=== PATIENT | female | born 1960 | race Caucasian/White ===

== ENCOUNTER 2020-01-15 12:02 | Outpatient (CLI) | payer OTHER, SELFPAY ==
[2020-01-16 14:21] LABS: SARS-CoV-2 RNA PCR Negative
== END 2020-01-15 12:03 | disposition home or self-care (01) ==
LOC: CHSLAB 12:07
PROVIDERS: PCP Internal Medicine; Visit Provider Internal Medicine
DX: Z20.828 Contact with and (suspected) exposure to other viral communicable diseases (principal)
CPT/HCPCS: 87635; C9803; U0003

== ENCOUNTER 2020-02-09 09:41 | Emergency (ER) | payer OTHER, SELFPAY ==
[2020-02-09 09:59] VITALS: BP 159/89; PULSE 82; RESP 18; TEMP 36.9; O2SAT 97
[2020-02-09] MEDS: KETOROLAC (*BKC) 60 MG/2 ML VIAL IM (10:51)
[2020-02-09] MEDS: BACLOFEN 10 MG TABLET 20 MG PO (10:58)
[2020-02-09] MEDS: DEXAMETHASONE 2 MG TABLET 10 MG PO (10:59)
[2020-02-09] MEDS: DIVALPROEX SODIUM 250 MG TAB.ER.24H 500 MG PO (10:59)
[2020-02-09] MEDS: PROCHLORPERAZINE MALEATE 5 MG TABLET 10 MG PO (10:59)
--- NOTE | 2020-02-09 12:15 | ED.HA ---
HPI - Headache General Chief Complaint: Headache Stated Complaint: Sever Headache Time Seen by Provider: 02/09/20 10:10 Source: patient Mode of arrival: ambulatory Limitations: no limitations History of Present Illness MD elicited complaint: headache and migraine Pertinent past history: migraines, hypertension and other (HL, ) Onset (ago): day(s) (She has has a migraine for the last several days. This has waxed and waned in severity over the past few day. ) Location: other (Headache now is not localized. It started behind the right eye as most of her headaches do. ) Severity: severe (Moderately severe to severe. She would say this is one of the worst she has had in some time. ) Pain scale (0-10): 8 Quality & Timing: throbbing Exacerbating factors: exertion and other (movement) Relieving factors: rest and dark room Associated symptoms: nausea Treatments prior to arrival: ibuprofen Related Data Home Medications Medication Instructions Recorded Confirmed rosuvastatin 60 mg PO HS 02/09/20 02/09/20 venlafaxine 150 mg PO DAILY 02/09/20 02/09/20 verapamil 120 mg PO HS 02/09/20 02/09/20 Allergies Allergy/AdvReac Type Severity Reaction Status Date / Time No Known Allergies Allergy Verified 02/09/20 09:58 Review of Systems Review of Systems: Narrative: Headache that has gone on for days and has gotten better, but not gone away a few times since it started. Constitutional: Constitutional: Reports no additional constitutional complaints Eyes: Eyes: Reports no additional eye complaints ENT: Reports system reviewed and no additional complaints, except as documented Gastrointestinal: Comments: Nausea Neurologic: Comments: no focal weakness PMFSH Past Medical History Medical History Anxiety Hyperlipidemia Migraine Exam Narrative: Exam Narrative: This is a 59 year old woman who has migraine since a teen. With age her headaches have become less severe. This episode is much worse than her usual and resembles headaches she had when she was Course Course Emergency Course: She was given ketorolac 60mg IM, baclofen 20mg po, compazine 10mg po, Depakote 500mg, and dexamethasone 10mg po. After a few minutes she was feeling better. She feels she can go home and sleep now. Vital Signs Vital signs: Vital Signs Temperature 36.9 C 02/09/20 09:59 Pulse Rate 82 02/09/20 09:59 Respiratory Rate 18 02/09/20 09:59 Blood Pressure 159/89 H 02/09/20 09:59 Pulse Oximetry 97 02/09/20 09:59 Temperature 36.9 C 02/09/20 09:59 Pulse Rate 75 02/09/20 12:16 Respiratory Rate 16 02/09/20 12:16 Blood Pressure 133/78 02/09/20 12:16 Pulse Oximetry 99 02/09/20 12:16 Discharge Plan Discharge Clinical Impression: Migraine Qualifiers: Status migrainosus presence: with status migrainosus Patient Disposition: Home, Self-Care Condition: Improved Instructions: Antibiotic Form, Migraine Headache (ED) Prescriptions: No Action venlafaxine 150 mg Capsule,Extended Release 24hr 150 mg PO DAILY RF: 0 verapamil 120 mg Tablet 120 mg PO HS RF: 0 rosuvastatin 40 mg Tablet 60 mg PO HS RF: 0 Follow-up/Referrals: Arvin Magana MD [Primary Care Provider] - Time of Disposition: 12:42
[2020-02-09 12:16] VITALS: BP 133/78; PULSE 75; RESP 16; O2SAT 99
== END 2020-02-09 12:50 | disposition home or self-care (01) ==
PROVIDERS: Emergency Provider Emergency Medicine; PCP Internal Medicine
DX: G43.901 Migraine, unspecified, not intractable, with status migrainosus (principal)
CPT/HCPCS: 96372; 99281; 99283; A9270; J1885; J8540

== ENCOUNTER 2020-04-19 05:45 | Emergency (ER) | payer OTHER, SELFPAY ==
[2020-04-19 05:59] VITALS: BP 150/83; PULSE 62; RESP 18; TEMP 36.3; O2SAT 100
[2020-04-19] MEDS: ONDANSETRON INJ 4 MG/2 ML VIAL IV PUSH (06:12)
[2020-04-19] MEDS: KETOROLAC 30 MG/ML VIAL (*BKC) IV PUSH (06:14)
[2020-04-19] MEDS: diphenhydrAMINE HCl INJ 50 MG/ML VIAL IV PUSH (06:15)
--- NOTE | 2020-04-19 06:27 | ED.HA ---
HPI - Headache General Chief Complaint: Headache Stated Complaint: Migraine Headache Source: patient and RN notes reviewed Mode of arrival: ambulatory Limitations: no limitations History of Present Illness MD elicited complaint: migraine Pertinent past history: migraines Onset (ago): day(s) (1) Onset description: gradually and while at rest Location: frontal Severity: similar to previous episodes Quality & Timing: throbbing and progressively worsening Exacerbating factors: light and noise Relieving factors: nothing Context: occurred at rest Associated symptoms: nausea and vomiting Treatments prior to arrival: none Related Data Home Medications Medication Instructions Recorded Confirmed rosuvastatin 60 mg PO HS 02/09/20 04/19/20 venlafaxine 150 mg PO DAILY 02/09/20 04/19/20 verapamil 120 mg PO HS 02/09/20 04/19/20 Allergies Allergy/AdvReac Type Severity Reaction Status Date / Time No Known Allergies Allergy Verified 02/09/20 09:58 Review of Systems Review of Systems: All systems reviewed & are unremarkable except as noted in HPI and below Constitutional: Constitutional: Denies chills and Denies fever(s) Eyes: Eyes: Reports photophobia Neurologic: Reports system reviewed and no additional complaints, except as documented PMFSH Past Medical History Medical History Anxiety Hyperlipidemia Migraine Exam Const: General: no acute distress and ill appearing (Appears in pain headache) acutely Nutritional Appearance: well nourished and thin Orientation/consciousness: patient oriented x3 HENMT: Head: normal to inspection Ears: external ears normal and TM's normal bilaterally General nose exam: Normal external nose present Face and sinus: normal facial exam Eyes: Conjunctivae: conjunctivae normal Pupils: Equal, round and reactive pupils present EOM: EOMs intact bilaterally Direct Ophthalmoscopy: photophobia Neck: Neck: normal visual inspection, no lymphadenopathy and no meningeal signs Resp: Effort & Inspection: normal respiratory effort Auscultation: clear to auscultation bilaterally Cardio: Rate: regular rate Rhythm: regular rhythm GI: GI Palp: Yes Soft to palpation and No Tenderness to palpation present (GI) Auscultation: normal bowel sounds Back/Spine/Pelvis: Cervical Spine: cervical ROM normal Thoracic/Lumbar Spine: thoraco-lumbar ROM normal Skin: General skin exam: normal color Rashes: no rashes Neuro: General: patient oriented x3, moves all extremities and no focal motor deficits Cranial nerves: Yes Nystagmus not present Speech: normal speech Gait exam (Neuro): Normal gait present Extrem: General: normal to inspection and no clubbing, cyanosis or edema Psych: Appearance: grossly normal and well kempt Mental Status: mental status grossly normal Affect: normal affect Attitude: cooperative Thought content: Yes Normal thought content present Course Vital Signs Vital signs: Vital Signs Temperature 36.3 C L 04/19/20 05:59 Pulse Rate 62 04/19/20 05:59 Respiratory Rate 18 04/19/20 05:59 Blood Pressure 150/83 H 04/19/20 05:59 Pulse Oximetry 100 04/19/20 05:59 Temperature 36.3 C L 04/19/20 05:59 Pulse Rate 62 04/19/20 05:59 Respiratory Rate 18 04/19/20 05:59 Blood Pressure 150/83 H 04/19/20 05:59 Pulse Oximetry 100 04/19/20 05:59 Discharge Plan Discharge Clinical Impression: Migraine Patient Disposition: Home, Self-Care Condition: Stable Instructions: Migraine Headache (ED) Additional Instructions: home rest in a quiet dark room. Follow up with primary care for appointment with Neurology. Prescriptions: No Action venlafaxine 150 mg Capsule,Extended Release 24hr 150 mg PO DAILY RF: 0 verapamil 120 mg Tablet 120 mg PO HS RF: 0 rosuvastatin 40 mg Tablet 60 mg PO HS RF: 0 Follow-up/Referrals: Arvin Magana MD [Primary Care Provider] - Time of Dispos
[2020-04-19 06:31] VITALS: BP 136/80; PULSE 65; RESP 20; O2SAT 100
[2020-04-19 06:44] VITALS: BP 138/78; PULSE 68; RESP 18; O2SAT 100
== END 2020-04-19 06:48 | disposition home or self-care (01) ==
PROVIDERS: Emergency Provider Emergency Medicine; PCP Internal Medicine
DX: G43.909 Migraine, unspecified, not intractable, without status migrainosus (principal)
CPT/HCPCS: 96374; 96375; 99283; 99284; J1200; J1885; J2405

== ENCOUNTER 2020-11-25 08:13 | Outpatient (CLI) | payer OTHER, SELFPAY ==
[2020-11-25 09:21] LABS: SARS-CoV-2 RNA PCR Negative (Negative)
== END 2020-11-25 08:14 | disposition home or self-care (01) ==
LOC: CHSLAB 08:15
PROVIDERS: PCP Internal Medicine; Visit Provider Internal Medicine
DX: Z20.822 Contact with and (suspected) exposure to COVID-19 (principal)
CPT/HCPCS: C9803; U0003; U0005

== ENCOUNTER 2021-09-25 13:44 | Outpatient (CLI) | payer OTHER, SELFPAY ==
--- NOTE | ~2021-09-25 | MM_ITS ---
EXAMINATION: MM screening kathrine BI w [facility] HISTORY: Screening mammogram TECHNIQUE: Craniocaudal and mediolateral oblique 3-D tomosynthesis images were obtained and synthetic 2-D images were generated. CAD analysis was submitted and interpreted. COMPARISON: 03/24/2019, 03/03/2018, 02/20/2017 right screening mammogram examinations BREAST PARENCHYMAL COMPOSITION: There are scattered areas of fibroglandular density. FINDINGS: Scattered punctate benign calcifications. There is no evidence of suspicious mass, calcific ation, or architectural distortion to suggest malignancy in either breast. There has been no suspicio us interval change. IMPRESSION: 1. No mammographic evidence of malignancy. 2. Recommend routine screening mammography in one year. BI-RADS Category 2: Benign finding(s). Reviewed, dictated and finalized at location A.
== END 2021-09-25 13:45 | disposition home or self-care (01) ==
LOC: CHSIMG 13:45
PROVIDERS: PCP Internal Medicine; Visit Provider Internal Medicine
DX: Z12.31 Encounter for screening mammogram for malignant neoplasm of breast (principal)
CPT/HCPCS: 77063; 77067

== ENCOUNTER 2022-02-22 08:38 | Outpatient (CLI) | payer OTHER, SELFPAY ==
--- NOTE | ~2022-02-22 | XR_ITS ---
EXAMINATION: XR chest 2V 02/22/2022 09:01 INDICATION: Cough. Upper respiratory infection. PROCEDURE: 2 view chest COMPARISON: No prior studies for comparison. FINDINGS: The lungs are clear. The cardiomediastinal silhouette is within normal limits. There are no pleural effusions. There is no pneumothorax suspected. There are surgical clips overlying the le ft axilla. There is apical pleural thickening/scarring. The lungs are hyperinflated which is consiste nt with, but not diagnostic of chronic obstructive pulmonary disease. IMPRESSION: 1: NO ACUTE CARDIOPULMONARY DISEASE. Reviewed, dictated and finalized at location A. NT EXTERMINATOR
[2022-02-22 08:55] LABS: Basophils Absolute Auto 0.06 K/mm3 (0.00-0.10); Basophils Percent Auto 0.9 % (0.0-1.0); Eosinophils Absolute Auto 0.15 K/mm3 (0.02-0.50); Eosinophils Percent Auto 2.2 % (1.0-6.0); Hematocrit 40.4 % (35.0-49.0); Hemoglobin 13.4 g/dL (12.0-15.0); Immature Granulocyte Absolute 0.02 K/mm3 (0.00-0.00); Immature Granulocyte Percent A 0.3 % (0.0-0.0); Lymphocytes Absolute Auto 3.02 K/mm3 (1.10-4.50); Lymphocytes Percent Auto 44.4 % (18.0-42.0); Mean Corpuscular HGB Conc 33.2 g/dL (32.0-36.0); Mean Corpuscular Volume 90.6 fL (78.0-102.0); Mean Platelet Volume 9.3 fl (9.2-11.8); Monocytes Absolute Auto 0.49 K/mm3 (0.10-0.90); Monocytes Percent Auto 7.2 % (2.0-11.0); Neutrophils Absolute Auto 3.1 K/mm3 (1.7-7.2); Platelet Count Result 403 K/mm3 (150-420); Red Blood Count 4.46 M/mm3 (4.20-5.40); Red Cell Distribution Width 11.7 % (11.6-14.4); White Blood Count 6.8 K/mm3 (4.8-10.8)
[2022-02-22 09:21] LABS: SARS-CoV-2 Ag Positive (Negative)
[2022-02-22 09:39] LABS: Alanine Aminotransferase 25 U/L (14-59); Albumin Level 3.8 g/dL (3.4-5.0); Alkaline Phosphatase 99 U/L (46-116); Anion Gap 7 mmol/L (8-16); Aspartate Amino Transferase 16 U/L (15-37); Bilirubin,Total 0.3 mg/dL (0.00-1.00); Blood Urea Nitrogen 13 mg/dL (7-18); Calcium 9.3 mg/dL (8.5-10.1); Carbon Dioxide 31 mmol/L (21-32); Chloride 105 mmol/L (98-108); Estimated Glomerular Filt Rate > 60; Glucose 92 mg/dL (70-99); Osmolality Calculated 296 mOsm/kg (285-295); Potassium 4.9 mmol/L (3.5-5.1); Sodium 143 mmol/L (136-145); Total Protein 7.4 g/dL (6.4-8.2)
[2022-02-22 09:40] LABS: CRP < 0.5 mg/dL (0.0-0.9)
== END 2022-02-22 08:39 | disposition home or self-care (01) ==
PROVIDERS: PCP Internal Medicine; Visit Provider Internal Medicine
DX: U07.1 COVID-19 (principal); J06.9 Acute upper respiratory infection, unspecified; R05.9 Cough, unspecified
CPT/HCPCS: 36415; 71046; 80053; 85025; 86140; 87426; C9803

== ENCOUNTER 2022-09-27 11:41 | Outpatient (CLI) | payer OTHER, SELFPAY ==
--- NOTE | ~2022-09-27 | MM_ITS ---
EXAMINATION: MM screening kathrine BI w [facility] HISTORY: Screening mammogram TECHNIQUE: Craniocaudal and mediolateral oblique 3-D tomosynthesis images were obtained and synthetic 2-D images were generated. CAD analysis was submitted and interpreted. COMPARISON: 09/25/2021, 03/24/2019, 03/03/2018 screening mammogram examinations BREAST PARENCHYMAL COMPOSITION: There are scattered areas of fibroglandular density. FINDINGS: Status post left mastectomy and reconstruction, right breast reduction by clinical history. Scattered benign calcifications are again present. There is no evidence of suspicious mass, calcific ation, or architectural distortion to suggest malignancy in either breast. There has been no suspicio us interval change. IMPRESSION: 1. No mammographic evidence of malignancy. 2. Recommend routine screening mammography in one year. BI-RADS Category 1: Negative Reviewed, dictated and finalized at location A.
== END 2022-09-27 11:42 | disposition home or self-care (01) ==
LOC: CHSIMG 11:42
PROVIDERS: PCP Internal Medicine; Visit Provider Internal Medicine
DX: Z12.31 Encounter for screening mammogram for malignant neoplasm of breast (principal)
CPT/HCPCS: 77063; 77067

== ENCOUNTER 2023-08-07 12:03 | Outpatient (CLI) | payer OTHER, MEDICAID, SELFPAY ==
--- NOTE | ~2023-08-07 | US_ITS ---
EXAMINATION: US renal BI DATE: 08/07/2023 12:24 INDICATION: Proteinuria. TECHNIQUE: Multiple ultrasound grayscale images of the kidneys were obtained. COMPARISON: Abdomen MRI 07/21/2012 FINDINGS: The right kidney measures 11.1 x 4.6 x 5.3 cm. The left kidney measures 10.3 x 4.2 x 5.3 cm. There is a 2.4 cm cyst in right kidney. The kidneys demonstrate normal parenchymal echogenicity. There is no hydronephrosis. The bladder is normal. IMPRESSION: 1. Normal kidney sizes. No hydronephrosis. Reviewed, dictated and finalized at location A.
== END 2023-08-07 12:04 | disposition home or self-care (01) ==
PROVIDERS: PCP Internal Medicine; Visit Provider Internal Medicine Nephrology
DX: R80.9 Proteinuria, unspecified (principal)
CPT/HCPCS: 76775

== ENCOUNTER 2023-09-30 07:45 | Outpatient (CLI) | payer OTHER, MEDICAID, SELFPAY ==
--- NOTE | ~2023-09-30 | MM_ITS ---
EXAMINATION: MM screening kathrine BI w [facility] HISTORY: Screening mammogram TECHNIQUE: Craniocaudal and mediolateral oblique 3-D tomosynthesis images of the right breast were ob tained and synthetic 2-D images were generated. CAD analysis was submitted and interpreted. COMPARISON: 09/27/2022, 09/25/2021, 03/24/2019 BREAST PARENCHYMAL COMPOSITION:Not Dense. There are scattered areas of fibroglandular density. FINDINGS: Scattered punctate benign calcifications are present. No suspicious mass, calcification, or architectural distortion are identified in either breast to suggest malignancy. There has been no gentile spicious interval change. IMPRESSION: No mammographic evidence of malignancy. Recommend routine screening mammography in one year. BI-RADS Category 2: Benign finding(s). Reviewed, dictated and finalized at [facility].
== END 2023-09-30 07:46 | disposition home or self-care (01) ==
LOC: CHSIMG 07:46
PROVIDERS: PCP Internal Medicine; Visit Provider Internal Medicine
DX: Z12.31 Encounter for screening mammogram for malignant neoplasm of breast (principal)
CPT/HCPCS: 77063; 77067

== ENCOUNTER 2024-10-01 07:16 | Outpatient (CLI) | payer OTHER, MEDICAID, SELFPAY ==
--- NOTE | ~2024-10-01 | MM_ITS ---
EXAMINATION: MM screening kathrine RT w [facility] HISTORY: Screening mammogram TECHNIQUE: Craniocaudal and mediolateral oblique 3-D tomosynthesis images were obtained and synthetic 2-D images were generated. CAD analysis was submitted and interpreted. COMPARISON: 09/30/2023, 09/27/2022, 09/25/2021 BREAST PARENCHYMAL COMPOSITION:Not Dense. There are scattered areas of fibroglandular density. FINDINGS: No suspicious mass, calcification, or architectural distortion are identified in either pop ast to suggest malignancy. There has been no suspicious interval change. IMPRESSION: No mammographic evidence of malignancy. Recommend routine screening mammography in one year. BI-RADS Category 1: Negative Reviewed, dictated and finalized at location .
== END 2024-10-01 07:17 | disposition home or self-care (01) ==
LOC: CHSIMG 07:20
PROVIDERS: PCP Internal Medicine; Visit Provider Internal Medicine
DX: Z12.31 Encounter for screening mammogram for malignant neoplasm of breast (principal)
CPT/HCPCS: 77063; 77067